=== PATIENT | female | born 2000 | race Caucasian/White ===

== ENCOUNTER 2021-11-04 08:37 | Outpatient (REF) | payer MEDICAID, SELFPAY ==
--- NOTE | ~2021-11-04 | US_ITS ---
EXAMINATION: US DIAGNOSTIC ULTRASOUND BREAST, LEFT CLINICAL INFORMATION: 21-year-old with one year palpable area lateral left breast. Prior history excision benign right breast mass in [place]. No known family history breast cancer. COMPARISON: None. TECHNIQUE: Ultrasound left breast is targeted to the area of clinical concern lateral breast. Patient is able to point to area of concern at time of imaging. Grayscale imaging and color Doppler are performed without and with harmonics. FINDINGS: There is a circumscribed macrolobulated solid mass at site of palpable concern 3:00 position 5 cm from nipple measuring 1.5 x 1.0 x 1.3 cm. The lesion resides just deep to the skin. There is no claw sign with the skin. No skin thickening or edema tracking in soft tissue planes. Finding most likely represents a fibroadenoma. Results are discussed with the patient at time of visit. Management options discussed with the patient. US/US breast LT limited IMPRESSION: Macrolobulated solid mass 3:00 position measuring 1.5 cm, likely fibroadenoma. ASSESSMENT: BI-RADS 3: Probably Benign RECOMMENDATION: Targeted left breast ultrasound in 6 months. This patient's information was entered into a reminder system with a target due date for their next mammogram.
== END 2021-11-04 08:38 | disposition home or self-care (01) ==
LOC: HO.MAMMO 08:37
PROVIDERS: Visit Provider Registered Nurse Community Health
DX: N63.25 Unspecified lump in the left breast, overlapping quadrants (principal)
CPT/HCPCS: 76642